=== PATIENT | male | born 1940 | race Caucasian/White ===

== ENCOUNTER 2018-12-29 20:48 | Emergency (ER) | payer OTHER ==
[~2018-12-29] VITALS: Ht 182.9 cm; Wt 68.0 kg
[2018-12-29 20:48] VITALS: BP 122/56
--- NOTE | 2018-12-29 20:48 | NUR ---
PT TRANSFERED FROM [facility] TO BED 10.
--- NOTE | 2018-12-29 21:00 | NUR ---
78 Y/O MALE BIB [facility]. PRESENTS TO ED, C/O SYNCOPAL EPISODE. PER REPORT FROM GYMNASTICS COACH, PT HAD SYNCOPE EPISODE 30 MIN CANT HOOKER THAT LASTED APPROXIMATELY 2 MINS. NO SIGNS OF TRAUMA. FAMILY ON SCENE DENIES PT HITTING HEAD. PT HAS HX OF CVA. 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 GYMNASTICS COACH REPORTED PT WAS POSTIVE FOR ORTHOSTATIC HTN. PT WAS STARTED ON 1000ML NS BOLUS. PT VSS. ERMD AWARE. WILL CONTINUE TO MONITOR.
[2018-12-29] MEDS ORDERED: NACL 0.9% 1,000 ML IV ONE (21:10)
[2018-12-29 21:59] LABS: BASOPHILS % (AUTO) 0.7 % (0.0-2.0); EOSINOPHILS # (AUTO) 0.2 K/uL (0-0.4); EOSINOPHILS % (AUTO) 5.5 % (0.0-4.0); HEMATOCRIT 36.6 % (36-52); HEMOGLOBIN 12.4 g/dL (12.0-18.0); LYMPHOCYTES # (AUTO) 1.4 K/uL (2.0-11.5); LYMPHOCYTES % (AUTO) 32.5 % (20.5-51.1); MEAN CORPUSCULAR HEMOGLOBIN 32 pg (27-31); MEAN CORPUSCULAR HGB CONC 34 g/dL (33-37); MEAN CORPUSCULAR VOLUME 95.4 fL (80-94); MONOCYTES # (AUTO) 0.3 K/uL (0.8-1.0); MONOCYTES % (AUTO) 7.6 % (1.7-9.3); NEUTROPHILS # (AUTO) 2.4 K/uL (1.8-7.7); NEUTROPHILS % (AUTO) 53.7 % (42.2-75.2); PLATELET COUNT (AUTO) 121 K/uL (140-450); RED BLOOD CELL COUNT(AUTO) 3.84 MIL/uL (4.20-6.10); RED CELL DISTRIBUTION WIDTH 12.8 % (11.6-13.7); WHITE BLOOD COUNT (AUTO) 4.4 K/uL (4.8-10.8)
[2018-12-29 22:17] LABS: ANION GAP 10.2 (8-16); CHLORIDE 103 mmol/L (98-107); GLUCOSE 122 mg/dL (74-106); POTASSIUM 4.2 mmol/L (3.5-5.1); SODIUM SERUM 139 mmol/L (136-145); UREA NITROGEN, BLOOD 16 mg/dL (7-18)
[2018-12-29 22:21] LABS: ALBUMIN 3.3 g/dL (3.4-5.0); ASPARTATE AMINOTRANSFERASE 15 U/L (15-37); TOTAL BILIRUBIN 0.3 mg/dL (0.0-1.0)
[2018-12-29 22:33] LABS: PROTHROMBIN TIME 9.9 secs (10.8-13.4)
--- NOTE | 2018-12-29 23:12 | NUR ---
PT AWAKE, LAYING ON BED. DAUGHTERS AT BEDSIDE. PT VSS. ERMD AWARE. WILL CONTINUE TO MONITOR.
[2018-12-30 00:17] LABS: APPEARANCE,URINE CLEAR (CLEAR); BILIRUBIN,URINE NEGATIVE (NEGATIVE); BLOOD, URINE NEGATIVE (NEGATIVE); COLOR,URINE YELLOW (YELLOW); LEUKOCYTE ESTERASE ,URINE NEGATIVE (NEGATIVE); NITRITE, URINE NEGATIVE (NEGATIVE); UGLUCOSE NEGATIVE (NEGATIVE)
[2018-12-30 00:37] VITALS: BP 113/55
--- NOTE | 2018-12-30 00:37 | NUR ---
PT DISCHARGED WITH PAPERWORK. NO RX PROVIDED. EDUCATED PT REGARDING D/C DIAGNOSIS. PT VERBALIZED UNDERSTANDING OF TEACHING. TOLD PT TO FOLLOW UP WITH PCP AND WHEN TO RETURN TO ED. PT VSS. ALL QUESTIONS ANSWERED.
== END 2018-12-30 00:37 | disposition home or self-care (01) ==
LOC: MED 20:48
DX: E86.0 Dehydration (principal); Z86.73 Personal history of transient ischemic attack (TIA), and cerebral infarction without residual deficits; F14.10 Cocaine abuse, uncomplicated
CPT/HCPCS: 36415; 70450; 71045; 80053; 81003; 84484; 85025; 85610; 93005; 96374; 99284; J7030; Q0092